=== PATIENT | female | born 1940 | race Caucasian/White ===

== ENCOUNTER 2016-10-12 17:25 | Emergency (ER) | payer OTHER | END 2016-10-12 22:07 | disposition home or self-care (01) | LOC: ER 17:25 | DX: M25.552 Pain in left hip (principal); E87.6 Hypokalemia; Z79.82 Long term (current) use of aspirin; Z79.899 Other long term (current) drug therapy; Z88.1 Allergy status to other antibiotic agents; Z88.5 Allergy status to narcotic agent; W18.30XA Fall on same level, unspecified, initial encounter | CPT/HCPCS: 36415; 73502-LT; 96365; 96366 ==